=== PATIENT | female | born 1960 | race Caucasian/White ===

== ENCOUNTER → 2018-05-31 | Outpatient (CLI) | payer MEDICARE, OTHER ==
--- NOTE | 2018-06-01 13:47 | MM ---
Reason for exam: screening (asymptomatic). Last mammogram was performed 9 years and 3 months ago. History: Patient is postmenopausal. Family history of breast cancer in mother at age 65, breast cancer in maternal aunt, and breast cancer in grandmother at age 55. Physical Findings: A clinical breast exam by your physician is recommended on an annual basis and results should be correlated with mammographic findings. MG 3D Screening Mammo W/Cad Bilateral CC and MLO view(s) were taken. Prior study comparison: March 14, 2009, bilateral diagnostic digital mammog. February 28, 2008, bilateral diagnostic digital mammog. The breast tissue is heterogeneously dense. This may lower the sensitivity of mammography. Finding #1: There is a new 4 mm circumscribed round mass in the outer quadrant, middle position of the right breast on MLO view and CC view . Finding #2: There are two typically benign round calcifications in the right breast. There is a chronic nodularity in the left breast. ASSESSMENT: Incomplete: need additional imaging evaluation, BI-RAD 0 RECOMMENDATION: Ultrasound of the right breast. If lesion persists on supplemental views, image directed ultrasound is recommended. [facility] will attempt to contact patient to return for supplemental views and ultrasound if indicated.
== END | disposition home or self-care (01) ==
LOC: RADMAMWWP 13:14
PROVIDERS: ATTEND Internal Medicine
DX: Z12.31 Encounter for screening mammogram for malignant neoplasm of breast (principal); Z80.3 Family history of malignant neoplasm of breast
CPT/HCPCS: 77063; 77067

== ENCOUNTER → 2018-06-17 | Outpatient (CLI) | payer MEDICARE, OTHER ==
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
== END | disposition home or self-care (01) ==
LOC: RADUSWWP 15:02
PROVIDERS: ATTEND Internal Medicine
DX: R92.8 Other abnormal and inconclusive findings on diagnostic imaging of breast (principal)

== ENCOUNTER → 2024-02-09 | Outpatient (CLI) | payer MEDICARE, OTHER ==
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
== END | disposition home or self-care (01) ==
LOC: RADUSWWP 13:00
PROVIDERS: ATTEND Family Medicine
DX: M79.604 Pain in right leg (principal); R60.0 Localized edema

== ENCOUNTER → 2024-03-23 | Outpatient (CLI) | payer MEDICARE, OTHER ==
--- NOTE | 2024-03-23 10:02 | BD ---
EXAMINATION TYPE: Axial Bone Density DATE OF EXAM: 03/23/2024 CLINICAL HISTORY: 63 years old Female. ICD-10 CODE: [id number] SCREENING FOR OSTEOPOROSIS Height: 60 Weight: 163 FRAX RISK QUESTIONS: Family History (Parent hip fracture): no History of Fracture in Adulthood: no Secondary Osteoporosis: no Current Tobacco Use: yes RISK FACTORS HISTORY OF: Surgery to Spine/Hip(right/left)/Wrist (right/left): no MEDICATIONS: Thyroid Medications: no Osteoporosis Medications: no EXAM MEASUREMENTS: Bone mineral densitometry was performed using the [employer]. Bone mineral density as measured about the Lumbar spine is: ----- L1-L4(G/cm2): 1.030 T Score Values are as follows: ----- L1: -0.1 ----- L2: -1.6 ----- L3: -1.8 ----- L4: -1.5 ----- L1-L4: -1.2 Z Score Values are as follows: ----- L1: 1.2 ----- L2: -0.3 ----- L3: -0.6 ----- L4: -0.2 ----- L1-L4: 0.0 Bone mineral density baseline Bone mineral density about the R hip (g/cm2): 0.750 Bone mineral density about the L hip (g/cm2): 0.831 T Score values are as follows: -----R Neck: -2.8 -----L Neck: -2.1 -----R Total: -2.0 -----L Total: -1.4 Z Score values are as follows: -----R Neck: -1.5 -----L Neck: -0.8 -----R Total: -1.1 -----L Total: -0.4 Bone mineral density baseline FRAX%s: The graph provided illustrates a 15.8% chance for a major osteoporotic fx and a 5.9% chance f or the hips probability for fx in 10 years time. IMPRESSION: Osteopenia (T Score between -2.5 and -1). There is slightly increased risk of fracture and the patient may be considered for treatment. Re-Screen 2-5 years. NOTE: T-SCORE=SD OF THE YOUNG ADULT MEAN.
--- NOTE | 2024-03-23 10:45 | CTL ---
EXAMINATION TYPE: CT Low Dose Lung DATE OF EXAM ORDERED: 03/23/2024 COMPARISON: None HISTORY: . Low Dose CT Lung Screening CT DLP: 76.[address] CTDI: 2.4 mGy IV CONTRAST USED: None. SCREENING VISIT: First visit COMPARISON: None. TECHNIQUE: Low dose computed tomography scan was performed through the chest at 1 millimeter thick se ctions and reconstructed images in the coronal plane at [address] DIAGNOSTIC QUALITY: Satisfactory FINDINGS: LUNG NODULES: Not presentLeft lung: no nodules identified.Right lung: no nodules identified. LUNGS: COPD: Severity: Mild Fibrosis: Severity:None Lymph nodes: None Other findings: Atelectasis or parenchymal scarring left upper lobe. RIGHT PLEURAL SPACE: Effusion: None Calcification: None Thickening: None Pneumothorax: None LEFT PLEURAL SPACE: Effusion: None Calcification: None Thickening: None Pneumothorax: None HEART: Heart Size: Mildly enlarged Coronary calcification: Mild Pericardial effusion: None OTHER FINDINGS: Upper abdomen: No significant abnormality Bony thorax: Degenerative changes Supraclavicular region: No significant abnormalityOther: No significant abnormalityI IMPRESSION: No visible pulmonary nodularity identified. FOLLOW UP CT CHEST RECOMMENDATION: Follow-up screening in one year CT LUNG RAD: LUNG RAD CATEGORY 1 negative
--- NOTE | 2024-03-24 14:39 | MM ---
Reason for Exam: Screening (asymptomatic). Last mammogram was performed 5 year(s) and 10 month(s) ago. Patient History: Menarche at age 10. First Full-Term at age 14. Postmenopausal. Maternal grandmother had breast cancer, age 55. Maternal aunt had breast cancer, age 70. Mother had breast cancer, age 65. Risk Values: Autumn 5 year model risk: 3.1%. NCI Lifetime model risk: 11.4%. Prior Study Comparison: 02/28/2008 Bilateral Diagnostic Mammogram, [facility]. 03/14/2009 Bilateral Diagnostic Mammogram, [facility]. 05/31/2018 Bilateral Screening Mammogram, [facility]. Tissue Density: There are scattered areas of fibroglandular density. Findings: Analyzed By CAD. There is no suspicious group of microcalcifications or new suspicious mass in either breast. Overall Assessment: Negative, BI-RAD 1 Management: Screening Mammogram of both breasts in 1 year. . Patient should continue monthly self-breast exams. A clinical breast exam by your physician is recommended on an annual basis. This exam should not preclude additional follow-up of suspicious palpable abnormalities. Note on Autumn scores and lifetime risk: 1. A Autumn score greater than 3% is considered moderate risk. If this is the case, consider specialist referral to assess eligibility for a risk reducing agent. 2. If overall lifetime risk for the development of breast cancer is 20% or higher, the patient may qualify for future screening with alternating mammogram and breast MRI. Electronically signed and approved by: Ender Lovell M.D. Radiologis
== END | disposition home or self-care (01) ==
LOC: RADCTMAIN 08:40
PROVIDERS: ATTEND Family Medicine
DX: Z12.31 Encounter for screening mammogram for malignant neoplasm of breast (principal); Z12.2 Encounter for screening for malignant neoplasm of respiratory organs; Z13.820 Encounter for screening for osteoporosis; R92.323 Mammographic fibroglandular density, bilateral breasts; M85.89 Other specified disorders of bone density and structure, multiple sites; M81.0 Age-related osteoporosis without current pathological fracture; F17.210 Nicotine dependence, cigarettes, uncomplicated; Z78.0 Asymptomatic menopausal state; Z80.3 Family history of malignant neoplasm of breast
CPT/HCPCS: 71271; 77063; 77067; 77080

== ENCOUNTER → 2024-04-05 | Outpatient (CLI) | payer MEDICARE, OTHER ==
[2024-04-05 16:40] LABS: HCT 43.4 % (37.2-46.3); HGB 14.6 g/dL (12.0-15.0); MCH 32.3 pg (27.0-32.0); MCHC 33.6 g/dL (32.0-37.0); Mean Platelet Volume 9.5 FL (9.5-12.2); NRBC Per 100 WBC 0 X 10*3/uL (0.00-0.01); Platelet Count 334 X 10*3/uL (140-440); RBC 4.52 X 10*6/uL (4.10-5.20); RDW 13.2 % (11.5-14.5); WBC 6.96 X 10*3/uL (4.50-10.00)
[2024-04-05 16:41] LABS: BUN/Creat Ratio 19.83 Ratio (12.00-20.00); Blood Urea Nitrogen 11.9 mg/dL (9.0-27.0); Carbon Dioxide 24.5 mmol/L (21.6-31.8); Chloride 105 mmol/L (96-109); Chol/HDL Ratio 4.64 Ratio; Glucose 101 mg/dL (70-110); LDL Cholesterol,Calculated 109.7 mg/dL (0.0-131.0); Potassium 4.2 mmol/L (3.5-5.5); Sodium 142 mmol/L (135-145)
[2024-04-05 16:42] LABS: ALT 22 U/L (8-44); AST 15 U/L (13-35)
== END | disposition home or self-care (01) ==
LOC: LABWHC1 10:18
PROVIDERS: ATTEND Internal Medicine Cardiovascular Disease
DX: E78.2 Mixed hyperlipidemia
CPT/HCPCS: 36415; 80048; 80061; 84443; 84450; 84460; 85027